=== PATIENT | male | born 1995 ===

== ENCOUNTER 2016-12-20 00:02 | Emergency (ER) | payer BC ==
--- NOTE | 2016-12-20 00:47 | ED PDOC ---
HPI: Dental Pain/Injury Time Seen by Provider: 12/20/16 00:21 Chief Complaint (Nursing): Dental Pain Chief Complaint (Provider): Right lower dental pain, swelling History Per: Patient History/Exam Limitations: no limitations Onset/Duration Of Symptoms: Days (1) Current Symptoms Are (Timing): Still Present Severity: Moderate Pain Scale Rating Of: 6 Additional Complaint(s): Pt states he saw a dentist a few months ago for dental pain and was told that he needed a root canal but did not follow-up. Pt states this morning when he woke up it was swollen. Pt reports same pain. Past Medical History Reviewed: Historical Data, Nursing Documentation, Vital Signs Vital Signs: Last Vital Signs Temp 98.6 F 12/20/16 00:30 Pulse 79 12/20/16 00:30 Resp 16 12/20/16 00:30 BP 137/70 12/20/16 00:30 Pulse Ox 99 12/20/16 00:30 - Medical History PMH: No Chronic Diseases Denies: Chronic Kidney Disease - Surgical History Surgical History: No Surg Hx - Family History Family History: States: Unknown Family Hx - Living Arrangements Living Arrangements: With Family - Social History Current smoker - smoking cessation education provided: No Alcohol: Occasional Drugs: Denies - Immunization History Hx Tetanus Toxoid Vaccination: No Hx Influenza Vaccination: No Hx Pneumococcal Vaccination: No - Home Medications Home Medications: Ambulatory Orders Medication Instructions Recorded Ibuprofen [Motrin Tab] 800 mg PO Q6H PRN #20 tab 12/20/16 Penicillin VK [Pen-Vee K] 500 mg PO BID #20 tab 12/20/16 - Allergies Allergies/Adverse Reactions: Allergies Allergy/AdvReac Type Severity Reaction Status Date / Time No Known Allergies Allergy Unverified 05/18/14 15:58 Review of Systems ROS Statement: Except As Marked, All Systems Reviewed And Found Negative ENT: Positive for: Other (Dental pain, right lower ) Physical Exam - Reviewed Nursing Documentation Reviewed: Yes Vital Signs Reviewed: Yes - Physical Exam Appears: Positive for: Well, Non-toxic, No Acute Distress Head Exam: Positive for: ATRAUMATIC, NORMAL INSPECTION, NORMOCEPHALIC Skin: Positive for: Normal Color, Warm, DRY Eye Exam: Positive for: Normal appearance ENT: Positive for: Normal ENT Inspection, Other ((+) right cheek swelling, no abscess formation, no drainage ) Neck: Positive for: Normal, Painless ROM Cardiovascular/Chest: Positive for: Regular Rate, Rhythm Respiratory: Positive for: Normal Breath Sounds. Negative for: Accessory Muscle Use Back: Positive for: Normal Inspection Extremity: Positive for: Normal ROM Neurologic/Psych: Positive for: Alert - ECG O2 Sat by Pulse Oximetry: 99 Disposition - Clinical Impression Clinical Impression: Pain, dental - Patient ED Disposition Is Patient to be Admitted: No Counseled Patient/Family Regarding: Diagnosis, Need For Followup, Rx Given - Disposition Referrals: [facility] [Outside] Disposition: Routine/Home Disposition Time: 00:45 Condition: GOOD Prescriptions: Ibuprofen [Motrin Tab] 800 mg PO Q6H PRN #20 tab PRN Reason: Pain Penicillin VK [Pen-Vee K] 500 mg PO BID #20 tab Instructions: Toothache (ED)
[2016-12-20 00:51] VITALS: BP 137/70; PULSE 79; RESP 16; TEMP 98.6; O2SAT 99
== END 2016-12-20 01:00 | disposition home or self-care (01) ==
LOC: H.ER 00:02
DX: K08.89 Other specified disorders of teeth and supporting structures (principal)